=== PATIENT | male | born 1995 | race African-American/Black ===

== ENCOUNTER 2021-09-21 04:27 | Emergency (ER) | payer MEDICAID ==
[~2021-09-21] VITALS: Ht 175.3 cm; Wt 80.0 kg
[2021-09-21] MEDS ORDERED: MORPHINE SULFATE 4 MG/ML CPJ (NOT FOR IM USE) IV STA (05:16)
[2021-09-21] MEDS ORDERED: MORPHINE SULFATE 2 MG/ML CPJ (NOT FOR IM USE) IV SCH (05:30)
[2021-09-21 05:37] LABS: BASOPHILS % 0.4 % (0.0-2.0); EOSINOPHILS % 2.6 % (0.0-5.0); HEMATOCRIT. 43.5 % (42.0-52.0); HEMOGLOBIN. 15.1 g/dL (14.0-18.0); LYMPHOCYTES % 20.5 % (20.0-50.0); MEAN CORPUSCULAR HEMOGLOBIN 31.4 pg (28.0-32.0); MEAN CORPUSCULAR VOLUME 90.4 fL (80.0-94.0); MONOCYTES % 7.7 % (2.0-8.0); NEUTROPHILS % 68.8 % (40.0-76.0); PLATELET 276 x1000/uL (130-400); RED BLOOD CELL COUNT 4.82 mill/uL (4.7-6.1); RED CELL DISTRIBUTION WIDTH 12.1 % (11.6-14.6)
[2021-09-21 05:43] LABS: CHLORIDE 104 mEq/L (98-107)
[2021-09-21 05:56] LABS: INR 1.2; PROTHROMBIN TIME 12.3 sec (9.6-11.0)
[2021-09-21] MEDS ORDERED: TOPUD PO (07:04)
[2021-09-21] MEDS ORDERED: ONDA4TAB5 PO (07:04)
[2021-09-21 07:11] LABS: CLARITY URINE CLEAR (CLEAR); COLOR URINE DARK YELLOW (YELLOW); KETONES URINE TRACE (NEGATIVE); LEUKOCYTE ESTERASE URINE NEGATIVE (NEGATIVE); NITRITE URINE NEGATIVE (NEGATIVE); OCCULT BLOOD URINE NEGATIVE (NEGATIVE); PH URINE 5.5 (4.5-8.0); PROTEIN URINE 1+ (NEGATIVE); SPECIFIC GRAVITY URINE 1.037 (1.005-1.030)
[2021-09-21 07:20] VITALS: BP 79/76
== END 2021-09-21 07:27 | disposition home or self-care (01) ==
LOC: ER 04:27
DX: R10.13 Epigastric pain (principal); R11.2 Nausea with vomiting, unspecified; F17.210 Nicotine dependence, cigarettes, uncomplicated; Z71.6 Tobacco abuse counseling
CPT/HCPCS: 36415; 74176; 80053; 81003; 83690; 85025; 85610; 93005; 96374; 99285; 99406; J2270

== ENCOUNTER 2022-10-03 14:18 | Emergency (ER) | payer MEDICAID, OTHER ==
[~2022-10-03] VITALS: Ht 180.3 cm; Wt 79.0 kg
[~2022-10-03 14:18] MED LIST: ONDA4TAB5 PO; TOPUD PO
[2022-10-03] MEDS ORDERED: IPRATROPIUM BROMIDE (0.02%) 0.5MG/2.5ML NEB HHN STA (14:24)
[2022-10-03] MEDS ORDERED: METHYLPREDNISOLONE SOD SUCC 125 MG/2 ML VIAL IV STA (14:24)
[2022-10-03] MEDS ORDERED: ALBUTEROL (0.083%) 2.5MG/3ML NEB HHN STA (14:24)
[2022-10-03] MEDS ORDERED: MAGNESIUM 2 G PREMIX 50 ML IV STA (14:24)
[2022-10-03 14:56] LABS: BASOPHILS % 0.9 % (0.0-2.0); EOSINOPHILS % 14.8 % (0.0-5.0); HEMATOCRIT. 41.1 % (42.0-52.0); HEMOGLOBIN. 13.9 g/dL (14.0-18.0); LYMPHOCYTES % 27.9 % (20.0-50.0); MEAN CORPUSCULAR HEMOGLOBIN 31.7 pg (28.0-32.0); MEAN CORPUSCULAR VOLUME 93.5 fL (80.0-94.0); MEAN PLATELET VOLUME 8.7 fl (7.4-10.4); MONOCYTES % 4.7 % (2.0-8.0); NEUTROPHILS % 51.7 % (40.0-76.0); PLATELET 366 x1000/uL (130-400); RED BLOOD CELL COUNT 4.39 mill/uL (4.7-6.1); RED CELL DISTRIBUTION WIDTH 12.4 % (11.6-14.6)
[2022-10-03 15:01] LABS: CHLORIDE 105 mEq/L (98-107)
[2022-10-03] MEDS ORDERED: ALBU6.7H3 INH (16:19)
[2022-10-03] MEDS ORDERED: P50 MT (16:19)
[2022-10-03 16:45] VITALS: BP 150/94
== END 2022-10-03 16:46 | disposition home or self-care (01) ==
LOC: ER 14:18 → CANBEDREQ 10-04 22:35
DX: J45.901 Unspecified asthma with (acute) exacerbation (principal); Z79.899 Other long term (current) drug therapy; Z20.822 Contact with and (suspected) exposure to COVID-19
CPT/HCPCS: 36415; 71045; 80053; 83880; 84484; 85025; 87426; 94640; 96365; 96375; 99291; C9803; J2930; J3475; Z7610

== ENCOUNTER 2023-01-15 04:54 | Emergency (ER) | payer MEDICAID ==
[~2023-01-15] VITALS: Ht 170.2 cm; Wt 110.0 kg
[~2023-01-15 04:54] MED LIST changes: +ALBU6.7H3 INH; +P50 MT
[2023-01-15 04:56] VITALS: BP 113/84
== END 2023-01-15 07:48 | disposition left against medical advice (07) ==
LOC: ER 04:54
DX: Z53.21 Procedure and treatment not carried out due to patient leaving prior to being seen by health care provider (principal)

== ENCOUNTER 2023-06-20 20:17 | Emergency (ER) | payer MEDICAID, OTHER ==
[~2023-06-20] VITALS: Ht 170.2 cm; Wt 70.0 kg
[2023-06-20] MEDS ORDERED: PREDNISONE 20MG TABLET PO STA (20:27)
[2023-06-20] MEDS ORDERED: IPRATROPIUM BROMIDE (0.02%) 0.5MG/2.5ML NEB HHN STA (20:27)
[2023-06-20] MEDS ORDERED: ALBUTEROL (0.083%) 2.5MG/3ML NEB HHN SCH (20:30)
[2023-06-20 20:44] VITALS: BP 120/68; TEMP 98.3
[2023-06-20] MEDS ORDERED: ALBU6.7H3 INH (23:27)
[2023-06-20] MEDS ORDERED: P20 MT (23:27)
[2023-06-20 23:40] VITALS: PULSE 71; RESP 20; O2SAT 99
[2023-06-20] MEDS ORDERED: IPRATROPIUM BROMIDE (0.02%) 0.5MG/2.5ML NEB HHN NR (23:45)
[2023-06-21] MEDS ORDERED: ALBUTEROL (0.083%) 2.5MG/3ML NEB ONE (00:05)
[2023-06-21] MEDS: ALBUTEROL (0.083%) 2.5MG/3ML NEB HHN SCH ×3 (00:06→00:07)
== END 2023-06-21 00:23 | disposition home or self-care (01) ==
LOC: ER 20:17
DX: J45.901 Unspecified asthma with (acute) exacerbation (principal)
CPT/HCPCS: 94644; 99285; J7512; Z7610 ×4

== ENCOUNTER 2023-07-02 07:13 | Emergency (ER) | payer MEDICAID ==
[~2023-07-02] VITALS: Ht 182.9 cm; Wt 82.0 kg
[~2023-07-02 07:13] MED LIST changes: +P20 MT
[2023-07-02 07:15] VITALS: BP 132/68; PULSE 90; RESP 20; TEMP 98; O2SAT 99
== END 2023-07-02 08:00 | disposition left against medical advice (07) ==
LOC: ER 07:33
DX: Z53.21 Procedure and treatment not carried out due to patient leaving prior to being seen by health care provider (principal)
CPT/HCPCS: 99281